=== PATIENT | female | born 1945 | race Two or more races ===

== ENCOUNTER 2023-01-23 10:07 | Emergency (ER) | payer OTHER ==
[~2023-01-23] VITALS: Ht 154.9 cm; Wt 115.7 kg
[2023-01-23] MEDS ORDERED: TOPROL XL25 M1 PO (10:35)
[2023-01-23] MEDS ORDERED: NEURONTIN800 MG PO (10:36)
[2023-01-23] MEDS ORDERED: ROSUVASTATIN CAL5 MG PO (10:37)
[2023-01-23] MEDS ORDERED: VALSARTAN320 MG PO (10:37)
[2023-01-23] MEDS ORDERED: SYNTHROID137 MCG PO (10:38)
[2023-01-23] MEDS ORDERED: CHLORASEPTIC M1 EAC1 MM (11:31)
== END 2023-01-23 11:42 | disposition home or self-care (01) ==
LOC: ER 10:07
DX: K11.20 Sialoadenitis, unspecified (principal); K11.1 Hypertrophy of salivary gland; Z88.8 Allergy status to other drugs, medicaments and biological substances; E03.9 Hypothyroidism, unspecified; I10 Essential (primary) hypertension
CPT/HCPCS: 96372; 99283; J1885

== ENCOUNTER 2023-01-24 16:14 | Inpatient (IN) | payer OTHER ==
[~2023-01-24] VITALS: Ht 167.6 cm; Wt 99.8 kg
[~2023-01-24 16:14] MED LIST: CHLORASEPTIC M1 EAC1 MM; NEURONTIN800 MG PO; ROSUVASTATIN CAL5 MG PO; SYNTHROID137 MCG PO; TOPROL XL25 M1 PO; VALSARTAN320 MG PO
--- NOTE | 2023-01-24 17:33 | NUR ---
SE RECIBE PTE ALERTA Y OREINTADA X3 REFIERE VENIR HNANAH MISTI. YANETH LA ATENDIO VIENE POR DOLOR AREA DEL KRUNAL SE OBSERVA ROYAL DEL KRUNAL CARRASCO Y LEVEMENTE INFLAMADA LLEVAS DESDE LUNES CON LOS SINTOMAS. SE ADRIAN VITALES Y SE IRIS EN MALENA DE ESPERA
--- NOTE | 2023-01-24 19:34 | NUR ---
SE LE ORIENTA A PTE SOBRE TRATAMIENTO E INSTRUCCIONES A SEGUIR, SHIRA REFIERE ENTENDER. SE LE COLECTA MUESTRAS SE CANALIZA Y SE ADMINISTRA MEDICAMENTOS MIRTHA ORDEN MEDICA
[2023-01-25] MEDS ORDERED: PANTOPRAZOLE SO40 MG (15:03)
[2023-01-25] MEDS ORDERED: DULOXETINE HCL30 MG (15:03)
[2023-01-25] MEDS ORDERED: TRELEGY ELLIPT1 EAC1 (15:03)
[2023-01-25] MEDS ORDERED: MEMANTINE HCL10 MG (15:03)
[2023-01-25] MEDS ORDERED: GABAPENTIN300 M2 (15:04)
[2023-01-25] MEDS ORDERED: BUPROPION XL150 MG (15:04)
[2023-01-25] MEDS ORDERED: VALSARTAN-HCTZ1 EAC3 (15:04)
== END 2023-01-29 15:06 | disposition home or self-care (01) | DRG 155 ==
LOC: ER 16:14 → SURG 21:11
PROVIDERS: Emergency Medicine; Internal Medicine Infectious Disease; ADMIT Internal Medicine; ATTEND Internal Medicine
PROC: BW2FZZZ Computerized Tomography (CT Scan) of Neck (ICD-10-PCS; principal; 2023-01-24)
DX: K11.21 Acute sialoadenitis (principal); L03.211 Cellulitis of face; M54.2 Cervicalgia; I10 Essential (primary) hypertension; E03.9 Hypothyroidism, unspecified